=== PATIENT | female | born 1965 | race Caucasian/White ===

== ENCOUNTER 2021-06-25 08:24 | Outpatient (CLI) | payer BC ==
[2021-06-25 14:58] LABS: BASOPHILS % (AUTO) 0.6 %; EOSINOPHILS # (AUTO) 0.1 10^3/uL (0.0-0.7); EOSINOPHILS % (AUTO) 1.9 %; HCT - HEMATOCRIT 41.3 % (37.0-47.0); HGB - HEMOGLOBIN 13.7 g/dL (12.0-16.0); LYMPHOCYTES # (AUTO) 2.4 10^3/uL (1.5-3.5); LYMPHOCYTES % (AUTO) 35.2 %; MEAN CORPUSCULAR HEMOGLOBIN 28.7 pg (27.0-31.0); MEAN CORPUSCULAR HGB CONC 33.2 g/dL (32.0-36.0); MEAN CORPUSCULAR VOLUME 86.4 fL (81.0-99.0); MEAN PLATELET VOLUME 10.7 fL (7.9-10.8); MONOCYTES # (AUTO) 0.5 10^3/uL (0.0-1.0); MONOCYTES % (AUTO) 7.5 %; NEUTROPHILS # (AUTO) 3.6 10^3/uL (1.5-6.6); NEUTROPHILS % (AUTO) 54.4 %; PLT - PLATELET COUNT 229 10^3/uL (130-450); RED BLOOD COUNT 4.78 10^6/uL (4.20-5.40); WHITE BLOOD COUNT 6.7 x10^3/uL (4.8-10.8)
[2021-06-25 15:40] LABS: ALBUMIN 3.9 g/dL (3.2-5.5); ALBUMIN/GLOBULIN RATIO 1.2 (1.0-2.2); ALKALINE PHOSPHATASE 62 IU/L (42-121); ALT ALANINE AMINOTRANSFERASE 21 IU/L (10-60); AST ASPARTATE AMINOTRANSFERASE 16 IU/L (10-42); BILIRUBIN,TOTAL 1.1 mg/dL (0.2-1.0); BUN - BLOOD UREA NITROGEN 11 mg/dL (6-20); CALCIUM 9.2 mg/dL (8.5-10.3); CARBON DIOXIDE - CO2 26 mmol/L (21-32); CHLORIDE 104 mmol/L (101-111); CHOL/HDL RATIO 4.2 (<4.4); CHOLESTEROL 194 mg/dL; CREATININE 0.6 mg/dL (0.4-1.0); GFR - MDRD 104 (>89); GLUCOSE 109 mg/dL (70-100); HDL CHOLESTEROL 46 mg/dL; LDL CHOLESTEROL,CALCULATED 117 mg/dL; LDL/HDL RATIO 2.5 (<4.4); POTASSIUM 3.9 mmol/L (3.5-5.0); SODIUM 136 mmol/L (135-145); TOTAL PROTEIN 7.1 g/dL (6.7-8.2); TRIGLYCERIDES 154 mg/dL; VLDL CHOLESTEROL 31 mg/dL
[2021-06-25 16:01] LABS: THYROID STIMULATING HORMONE 0.71 uIU/mL (0.34-5.60)
== END 2021-06-25 08:25 | disposition home or self-care (01) ==
LOC: LAB.S 08:24
PROVIDERS: ATTEND Family Medicine
DX: Z00.00 Encounter for general adult medical examination without abnormal findings (principal); E06.3 Autoimmune thyroiditis
CPT/HCPCS: 36415; 80053; 80061; 83721; 84443; 85025

== ENCOUNTER 2021-12-30 07:17 | Day surgery (SDC) | payer BC ==
[2021-12-30] MEDS ORDERED: LACTATED RINGERS 1,000 ML IV ONE ×2 (07:39→09:10)
--- NOTE | 2021-12-30 08:34 | ANESTHESIA ---
Pre-Anesthesia VS, & Labs - Diagnosis screening exam - Procedure colonoscopy Vital Signs: Temp Pulse Resp BP Pulse Ox O2 Flow Rate 36.2 C L 90 16 155/95 H 98 12/30/21 07:30 12/30/21 07:30 12/30/21 07:30 12/30/21 07:45 12/30/21 07:30 Height: 5 ft 3 in Weight (kg): 102.6 kg Body Mass Index: 40.0 BMI Classification: Morbidly Obese - NPO >8 hours - Is Patient ?: No Home Medications and Allergies Estradiol 0.05 mg Patch [Climara 0.05 mg] 1 patch [id number] DAILY 12/22/21 Liothyronine [Cytomel] 5 mcg PO DAILY 12/22/21 Progesterone, Micronized [Prometrium] 100 mg PO DAILY 12/22/21 Thyroid,Pork [[place] Thyroid] 60 mg PO DAILY 12/22/21 Allergies/Adverse Reactions: Allergies Allergy/AdvReac Type Severity Reaction Status Date / Time codeine Allergy Hives Verified 12/22/21 12:13 tree nut Allergy Anaphylaxis Verified 12/22/21 12:11 wheat Allergy Hives Verified 12/22/21 12:13 adhesive AdvReac Unknown Verified 12/22/21 12:25 Anes History & Medical History - Anesthetic History Anesthesia Complications: reports: No previous complications - Medical History Cardiovascular: reports: None Pulmonary: reports: Asthma Gastrointestinal: reports: None Urinary: reports: None Neuro: reports: None Musculoskeletal: reports: None Endocrine/Autoimmune: reports: HyPOthyroidism Blood Disorders: reports: None Skin: reports: Eczema Smoking Status: Never smoker Psychosocial: reports: No issues indicated History of Cancer?: No - Surgical History Eyes Ears Nose Throat (EENT): reports: Tonsil/Adenoidectomy Gynecologic: reports: Hysterectomy, Oophrectomy Exam General: Alert, Oriented x3, Cooperative, No acute distress Dental: WNL Mouth Openin Fingerbreadth Neck Mobility: Normal Mallampati classification: III Thyromental Distance: 4-6 cm Mental/Cognitive Status: Alert/Oriented X3, Normal for patient Plan Anesthesia Type: General, Total IV Consent for Procedure(s) Verified and Reviewed: Yes Code Status: Attempt Resuscitation ASA classification: 2-Mild systemic disease Is this case an emergency?: No
[2021-12-30] MEDS ORDERED: PROPOFOL 500 MG/50 ML 500 MG/50 ML VIAL ONE (09:13)
[2021-12-30] MEDS ORDERED: MIDAZOLAM 2 MG/2 ML VIAL ONE (09:14)
[2021-12-30 09:51] VITALS: BP 112/68
--- NOTE | 2021-12-30 09:55 | ANESTHESIA POST OP EVALUATION ---
Anesthesia Post Eval - Post Anesthesia Eval Vitals: Last Vital Signs Temp 36.1 C L 12/30/21 09:45 Pulse 66 12/30/21 09:45 Resp 16 12/30/21 09:45 BP 112/68 12/30/21 09:45 Pulse Ox 95 12/30/21 09:45 O2 Flow Rate CV Function Including HR & BP: Stable Pain Control: Satisfactory Nausea & Vomiting: Negative Mental Status: Baseline Respiratory Status: Airway Patent Hydration Status: Satisfactory Anesthesia Complications: None
== END 2021-12-30 07:18 | disposition home or self-care (01) ==
LOC: SDS 07:17
PROVIDERS: ATTEND Surgery
PROC: 0DBH8ZZ Excision of Cecum, Via Natural or Artificial Opening Endoscopic (ICD-10-PCS; principal; 2021-12-30 08:15)
DX: Z12.11 Encounter for screening for malignant neoplasm of colon (principal); D12.0 Benign neoplasm of cecum; K64.8 Other hemorrhoids; E66.01 Morbid (severe) obesity due to excess calories; Z68.41 Body mass index [BMI] 40.0-44.9, adult; J45.909 Unspecified asthma, uncomplicated
CPT/HCPCS: 45380; J7120

== ENCOUNTER 2022-05-11 07:20 | Outpatient (CLI) | payer BC ==
[2022-05-11 15:00] LABS: BASOPHILS % (AUTO) 0.4 %; EOSINOPHILS # (AUTO) 0.2 10^3/uL (0.0-0.7); EOSINOPHILS % (AUTO) 2.3 %; HCT - HEMATOCRIT 45.1 % (37.0-47.0); HGB - HEMOGLOBIN 14.2 g/dL (12.0-16.0); LYMPHOCYTES % (AUTO) 41.6 %; MEAN CORPUSCULAR HEMOGLOBIN 27.8 pg (27.0-31.0); MEAN CORPUSCULAR HGB CONC 31.5 g/dL (32.0-36.0); MEAN CORPUSCULAR VOLUME 88.4 fL (81.0-99.0); MEAN PLATELET VOLUME 10.9 fL (7.9-10.8); MONOCYTES # (AUTO) 0.4 10^3/uL (0.0-1.0); MONOCYTES % (AUTO) 5.5 %; NEUTROPHILS # (AUTO) 3.6 10^3/uL (1.5-6.6); NEUTROPHILS % (AUTO) 49.8 %; PLT - PLATELET COUNT 247 10^3/uL (130-450); RED CELL DISTRIBUTION WIDTH 13.2 % (12.0-15.0); WHITE BLOOD COUNT 7.3 x10^3/uL (4.8-10.8)
[2022-05-11 15:18] LABS: % IRON SATURATION 22 % (20-50); ALBUMIN 3.9 g/dL (3.2-5.5); ALBUMIN/GLOBULIN RATIO 1.2 (1.0-2.2); ALKALINE PHOSPHATASE 63 IU/L (42-121); ALT ALANINE AMINOTRANSFERASE 16 IU/L (10-60); AST ASPARTATE AMINOTRANSFERASE 13 IU/L (10-42); BUN - BLOOD UREA NITROGEN 12 mg/dL (6-20); CALCIUM 8.9 mg/dL (8.5-10.3); CARBON DIOXIDE - CO2 27 mmol/L (21-32); CHLORIDE 107 mmol/L (101-111); CHOL/HDL RATIO 4.2 (<4.4); CHOLESTEROL 220 mg/dL; CREATININE 0.7 mg/dL (0.4-1.0); CRP HIGH SENSITIVITY 1.1 mg/L; GFR - MDRD 87 (>89); GLUCOSE 101 mg/dL (70-100); HDL CHOLESTEROL 52 mg/dL; IRON 68 ug/dL (28-170); LDL CHOLESTEROL,CALCULATED 125 mg/dL; LDL/HDL RATIO 2.4 (<4.4); SODIUM 139 mmol/L (135-145); TOTAL IRON BINDING CAPACITY 304 ug/dL (250-450); TOTAL PROTEIN 7.1 g/dL (6.7-8.2); TRANSFERRIN 217 mg/dL (192-382); TRIGLYCERIDES 214 mg/dL; VLDL CHOLESTEROL 43 mg/dL
[2022-05-11 15:28] LABS: FREE T3 2.97 pg/mL (2.5-3.9); THYROID STIMULATING HORMONE 2.7 uIU/mL (0.34-5.60)
[2022-05-11 15:29] LABS: FREE T4 (FREE THYROXINE) 0.68 ng/dL (0.58-1.64)
[2022-05-11 15:34] LABS: FERRITIN 179.2 ng/mL (11.0-306.8)
[2022-05-11 20:35] LABS: ESTIMATED AVERAGE GLUCOSE 94 mg/dL (70-100); HEMOGLOBIN A1c% 4.9 % (4.27-6.07)
== END 2022-05-11 07:21 | disposition home or self-care (01) ==
LOC: LAB.S 07:20
PROVIDERS: ATTEND Naturopath
DX: Z00.01 Encounter for general adult medical examination with abnormal findings (principal); L65.9 Nonscarring hair loss, unspecified; N95.1 Menopausal and female climacteric states
CPT/HCPCS: 36415; 80053; 80061; 82172; 82728; 83036; 83540; 83721; 84439; 84443; 84466; 84481; 85025; 86141

== ENCOUNTER 2022-10-18 08:47 | Outpatient (CLI) | payer BC ==
[2022-10-18 15:13] LABS: BASOPHILS % (AUTO) 0.5 %; EOSINOPHILS # (AUTO) 0.2 10^3/uL (0.0-0.7); EOSINOPHILS % (AUTO) 3.1 %; HCT - HEMATOCRIT 41.1 % (37.0-47.0); HGB - HEMOGLOBIN 13.4 g/dL (12.0-16.0); LYMPHOCYTES # (AUTO) 2.3 10^3/uL (1.5-3.5); LYMPHOCYTES % (AUTO) 38.7 %; MEAN CORPUSCULAR HEMOGLOBIN 28.6 pg (27.0-31.0); MEAN CORPUSCULAR HGB CONC 32.6 g/dL (32.0-36.0); MEAN CORPUSCULAR VOLUME 87.6 fL (81.0-99.0); MEAN PLATELET VOLUME 10.3 fL (7.9-10.8); MONOCYTES # (AUTO) 0.4 10^3/uL (0.0-1.0); NEUTROPHILS % (AUTO) 51.5 %; PLT - PLATELET COUNT 213 10^3/uL (130-450); RED BLOOD COUNT 4.69 10^6/uL (4.20-5.40); RED CELL DISTRIBUTION WIDTH 13.2 % (12.0-15.0); WHITE BLOOD COUNT 5.8 x10^3/uL (4.8-10.8)
[2022-10-18 15:38] LABS: % IRON SATURATION 44 % (20-50); ALBUMIN/GLOBULIN RATIO 1.4 (1.0-2.2); ALKALINE PHOSPHATASE 70 IU/L (42-121); ALT ALANINE AMINOTRANSFERASE 11 IU/L (10-60); AST ASPARTATE AMINOTRANSFERASE 10 IU/L (10-42); BUN - BLOOD UREA NITROGEN 13 mg/dL (6-20); CALCIUM 9.3 mg/dL (8.5-10.3); CARBON DIOXIDE - CO2 29 mmol/L (21-32); CHLORIDE 104 mmol/L (101-111); CHOL/HDL RATIO 5.4 (<4.4); CHOLESTEROL 226 mg/dL; CREATININE 0.6 mg/dL (0.6-1.3); CRP HIGH SENSITIVITY 3.06 mg/L; GFR - MDRD 104 (>89); GLUCOSE 93 mg/dL (74-104); HDL CHOLESTEROL 42 mg/dL; IRON 117 ug/dL (50-212); LDL CHOLESTEROL,CALCULATED 114 mg/dL; LDL/HDL RATIO 2.7 (<4.4); POTASSIUM 4.3 mmol/L (3.5-4.5); SODIUM 136 mmol/L (135-145); TOTAL IRON BINDING CAPACITY 263 ug/dL (250-450); TOTAL PROTEIN 6.9 g/dL (6.4-8.9); TRANSFERRIN 188 mg/dL (203-362); TRIGLYCERIDES 350 mg/dL (48-352); VLDL CHOLESTEROL 70 mg/dL
[2022-10-18 15:55] LABS: FERRITIN 204.1 ng/mL (11.0-306.8)
[2022-10-18 18:28] LABS: ESTIMATED AVERAGE GLUCOSE 97 mg/dL (70-100)
== END 2022-10-18 08:48 | disposition home or self-care (01) ==
LOC: LAB.S 08:47
PROVIDERS: ATTEND Naturopath
DX: Z00.01 Encounter for general adult medical examination with abnormal findings (principal); E78.2 Mixed hyperlipidemia
CPT/HCPCS: 36415; 80053; 80061; 82172; 82728; 83036; 83540; 83721; 84466; 85025; 86141

== ENCOUNTER 2023-08-26 02:08 | Emergency (ER) | payer BC ==
[2023-08-26 02:24] VITALS: O2SAT 98
[2023-08-26 02:32] LABS: BASOPHILS % (AUTO) 0.3 %; EOSINOPHILS # (AUTO) 0.2 10^3/uL (0.0-0.7); EOSINOPHILS % (AUTO) 1.6 %; HCT - HEMATOCRIT 41.8 % (37.0-47.0); HGB - HEMOGLOBIN 13.9 g/dL (12.0-16.0); LYMPHOCYTES # (AUTO) 2.7 10^3/uL (1.5-3.5); LYMPHOCYTES % (AUTO) 25.5 %; MEAN CORPUSCULAR HEMOGLOBIN 28.4 pg (27.0-31.0); MEAN CORPUSCULAR HGB CONC 33.3 g/dL (32.0-36.0); MEAN CORPUSCULAR VOLUME 85.5 fL (81.0-99.0); MONOCYTES # (AUTO) 0.6 10^3/uL (0.0-1.0); MONOCYTES % (AUTO) 5.4 %; NEUTROPHILS # (AUTO) 7.1 10^3/uL (1.5-6.6); PLT - PLATELET COUNT 221 10^3/uL (130-450); RED BLOOD COUNT 4.89 10^6/uL (4.20-5.40); RED CELL DISTRIBUTION WIDTH 12.7 % (12.0-15.0); WHITE BLOOD COUNT 10.7 x10^3/uL (4.8-10.8)
[2023-08-26 02:49] LABS: ALBUMIN 4.1 g/dL (3.2-5.5); ALBUMIN/GLOBULIN RATIO 1.6 (1.0-2.2); BILIRUBIN,TOTAL 1.1 mg/dL (0.2-1.0); CALCIUM 9.3 mg/dL (8.5-10.3); CREATININE 0.8 mg/dL (0.6-1.3); POTASSIUM 3.5 mmol/L (3.5-4.5); TOTAL PROTEIN 6.7 g/dL (6.4-8.9)
[2023-08-26] MEDS ORDERED: iohexoL-300 100 ML VIAL ONE (03:42)
[2023-08-26] MEDS: iohexoL-300 100 ML VIAL IVP ONE (04:06)
[2023-08-26] MEDS: SODIUM CHLORIDE 0.9% 1,000 ML IV STA (04:36)
--- NOTE | 2023-08-26 04:52 | ED Physician Documentation ---
PD HPI ABD PAIN - Stated complaint Stated Complaint: ABD PX - Chief complaint Chief Complaint: Abd Pain - History obtained from History obtained from: Patient - Additional information Additional information: Patient is a 58-year-old female who is currently on Mounjaro presenting for evaluation of abdominal pain that started suddenly at 130. She reports it feels all over but worse in the upper abdomen. It is sharp. No associated nausea or vomiting. Normal bowel movement today. She recently increased her dose of Mounjaro Has otherwise been tolerating it well. No fever, chest pain, difficulty breathing. Has had prior hysterectomy. Denies dysuria. Review of Systems Constitutional: denies: Fever Cardiac: denies: Chest pain / pressure Respiratory: denies: Dyspnea GI: reports: Abdominal Pain. 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: Tonsil/Adenoidectomy - Present Medications Home Medications: Ambulatory Orders Medication Instructions Recorded Confirmed Estradiol 0.05 mg Patch [Climara 1 patch [id number] DAILY 12/22/21 12/29/21 0.05 mg] Liothyronine [Cytomel] 5 mcg PO DAILY 12/22/21 12/29/21 Progesterone, Micronized 100 mg PO DAILY 12/22/21 12/29/21 [Prometrium] Thyroid,Pork [[place] Thyroid] 60 mg PO DAILY 12/22/21 12/29/21 - Allergies Allergies/Adverse Reactions: Allergies Allergy/AdvReac Type Severity Reaction Status Date / Time codeine Allergy Hives Verified 08/26/23 02:20 tree nut Allergy Anaphylaxis Verified 08/26/23 02:20 wheat Allergy Hives Verified 08/26/23 02:20 adhesive AdvReac Unknown Verified 08/26/23 02:20 - Social History Does the pt smoke?: No Smoking Status: Never smoker Does the pt drink ETOH?: Yes Does the pt have substance abuse?: No - Immunizations Immunizations are current?: Yes - POLST Patient has POLST: No PD ED PE NORMAL - General General: Alert and oriented X 3, No acute distress, Well developed/nourished - HEENT HEENT: Atraumatic - Neck Neck: Supple, no meningeal sign - Cardiac Cardiac: RRR, Strong equal pulses - Respiratory Respiratory: No respiratory distress, Clear bilaterally - Abdomen Abdomen: Normal bowel sounds, Soft, Non distended, Other (Epigastric and left upper quadrant tenderness,) - Derm Derm: Warm and dry - Neuro Neuro: Normal speech Results - Vitals Vitals: Vital Signs - 24 hr 08/26/23 08/26/23 02:16 05:04 Temperature 36.4 C L Heart Rate 106 H 78 Respiratory 18 18 Rate Blood Pressure 192/115 H 166/88 H O2 Saturation 98 98 Oxygen O2 Source Room air - Labs Labs: Laboratory Tests 08/26/23 08/26/23 02:26 02:26 WBC 10.7 RBC 4.89 Hgb 13.9 Hct 41.8 MCV 85.5 MCH 28.4 MCHC 33.3 RDW 12.7 Plt Count 221 MPV 10.0 Neut # (Auto) 7.1 H Lymph # (Auto) 2.7 [place] # (Auto) 0.6 Eos # (Auto) 0.2 Baso # (Auto) 0.0 Absolute Nucleated RBC 0.00 Nucleated RBC % 0.0 Sodium 138 Potassium 3.5 Chloride 104 Carbon Dioxide 26 Anion Gap 8.0 BUN 12 Creatinine 0.8 Estimated GFR (MDRD) 74 L Glucose 105 H Calcium 9.3 Total Bilirubin 1.1 H AST 29 ALT 25 Alkaline Phosphatase 78 Total Protein 6.7 Albumin 4.1 Globulin 2.6 Albumin/Globulin Ratio 1.6 Lipase 13 PD Medical Decision Making - ED course Complexity details: reviewed results, re-evaluated patient, d/w patient ED course: Patient presenting for evaluation of abdominal pain that woke her up from her sleep around 130. She is on Mounjaro and they recently increased her dose. CBC, chemistry were obtained and reviewed and without significant findings. Patient did have some tenderness primarily in the epigastric and left upper quadrant on repeated exam so CT scan was obtained and reviewed and without significant findings in this area. The CT report does comment about a distended gallbladder but on repeat evaluation she does not have tenderness in the right upper quadrant and states that this feels different than gallbladder attacks that she has had before. Similarly the CT scan also comments on Borderline distention of the appendix but no other findings to suggest appendicitis. On repeated exam she does not have any tenderness on the right lower quadrant. She is feeling better here. Would like to go home. She is counseled on strict return precautions should her pain recur or migrate elsewhere such as to the right side of her abdomen. Departure - Departure Disposition: 01 Home, Self Care Clinical Impression: Upper abdominal pain Condition: Stable Instructions: ED Abdominal Pain Female Non-Specific Abdominal Pain Comments: Your lab testing today is reassuring and it is also a good sign that your pain has significantly improved. The CAT scan of your abdomen does show a distended gallbladder but you do not have much tenderness over the gallbladder. At this time as your symptoms are improving feel it is reasonable to allow you to go home without further testing. However if your symptoms recur or return especially in the right Side of your abdomen then please return to the emergency department. Forms: PCP List Discharge Date/Time: 08/26/23 05:07
[2023-08-26 05:13] VITALS: BP 166/88
--- NOTE | 2023-08-26 12:10 | CT Report ---
PROCEDURE: Abdomen/Pelvis W INDICATIONS: upper abd pain CONTRAST: OMNI 300, 100mls TECHNIQUE: After the administration of intravenous contrast, a CT scan of the abdomen and pelvis was performed. Images were recorded and evaluated at appropriate window settings. Reformats: coronal and sagittal. F or radiation dose reduction, the following was used: automated exposure control, adjustment of mA and /or kV according to patient size. COMPARISON: None. FINDINGS: Image quality: Diagnostic. Lower chest: Unremarkable. Liver: No solid mass. Liver is enlarged measuring 17.9 cm. Gallbladder: Unremarkable. Biliary tree: No intrahepatic or extrahepatic dilation, accounting for age. Spleen: No splenomegaly. Pancreas: No pancreatic ductal dilation. Adrenals: No adrenal nodule. Kidneys and ureters: No hydronephrosis. No renal cystic lesion which requires follow up. No solid mas s. Stomach, bowel and peritoneum: No gastric or small bowel dilation. No abnormal wall thickening. No pa thologic free fluid. Extensive the upper limits of normal measuring 6 mm without surrounding inflammatory change. No appen dicolith. Lymph nodes: No central or retroperitoneal adenopathy. Vessels: No infrarenal aortic aneurysm. Patent portal vein. PELVIS Reproductive organs: 2.7 cm low-attenuation focus is present within the right ovary. Bladder: No abnormal wall thickening, accounting for underdistention. Pelvic lymph nodes: No pelvic adenopathy by size criteria. Bones: No aggressive osseous abnormality. Other: No significant ventral or inguinal hernia. IMPRESSION: Borderline prominence of the appendix without associated inflammatory change. This is likely incident al. However, very early developing appendicitis cannot be definitively excluded recommend correlation to clinical symptoms within this region. 2.5 cm right adnexal cyst. The above findings are concordant with preliminary report. Reviewed by: Morenita Dallas MD on 08/26/2023 12:08 PM PDT Approved by: Morenita Dallas MD on 08/26/2023 12:08 PM PDT Station ID: [id number]
== END 2023-08-26 05:07 | disposition home or self-care (01) ==
LOC: ED 02:08
DX: R10.10 Upper abdominal pain, unspecified (principal)
CPT/HCPCS: 36415; 74177; 80053; 83690; 85025; 99284; Q9967

== ENCOUNTER 2023-11-11 01:40 | Emergency (ER) | payer BC ==
[2023-11-11 02:14] LABS: BASOPHILS % (AUTO) 0.3 %; EOSINOPHILS # (AUTO) 0.2 10^3/uL (0.0-0.7); EOSINOPHILS % (AUTO) 1.3 %; HCT - HEMATOCRIT 43.3 % (37.0-47.0); HGB - HEMOGLOBIN 14.2 g/dL (12.0-16.0); LYMPHOCYTES # (AUTO) 1.8 10^3/uL (1.5-3.5); LYMPHOCYTES % (AUTO) 15.8 %; MEAN CORPUSCULAR HEMOGLOBIN 28.4 pg (27.0-31.0); MEAN CORPUSCULAR HGB CONC 32.8 g/dL (32.0-36.0); MEAN CORPUSCULAR VOLUME 86.6 fL (81.0-99.0); MEAN PLATELET VOLUME 10.4 fL (7.9-10.8); MONOCYTES # (AUTO) 0.7 10^3/uL (0.0-1.0); MONOCYTES % (AUTO) 5.8 %; NEUTROPHILS # (AUTO) 8.8 10^3/uL (1.5-6.6); NEUTROPHILS % (AUTO) 76.5 %; PLT - PLATELET COUNT 227 10^3/uL (130-450); WHITE BLOOD COUNT 11.5 x10^3/uL (4.8-10.8)
[2023-11-11 02:15] LABS: BILIRUBIN,URINE NEGATIVE (NEGATIVE); GLUCOSE, URINE (UA) NEGATIVE (NEGATIVE); KETONES,URINE (UA) NEGATIVE (NEGATIVE); LEUKOCYTE ESTERASE, URINE NEGATIVE (NEGATIVE); NITRITE,URINE NEGATIVE (NEGATIVE); OCCULT BLOOD,URINE TRACE-INTA (NEGATIVE); PROTEIN,URINE NEGATIVE (NEGATIVE); UROBILINOGEN,URINE 0.2 (NORMAL) E.U./dL (NORMAL)
[2023-11-11 02:21] LABS: CLARITY,URINE CLEAR (CLEAR)
[2023-11-11 02:31] LABS: ALBUMIN 4.3 g/dL (3.2-5.5); ALBUMIN/GLOBULIN RATIO 1.3 (1.0-2.2); BILIRUBIN,TOTAL 1.6 mg/dL (0.2-1.0); CALCIUM 9.3 mg/dL (8.5-10.3); CREATININE 0.6 mg/dL (0.6-1.3); POTASSIUM 3.7 mmol/L (3.5-4.5); TOTAL PROTEIN 7.5 g/dL (6.4-8.9)
[2023-11-11] MEDS: KETOROLAC 30 MG/ML VIAL IVP STA (02:39)
--- NOTE | 2023-11-11 06:55 | ED Physician Documentation ---
PD HPI ABD PAIN - Stated complaint Stated Complaint: VOMITING/ABD PX - Chief complaint Chief Complaint: Abd Pain - History obtained from History obtained from: Patient, Family - History of Present Illness Timing - onset: How many days ago (33) Timing - duration: Days Timing - details: Gradual onset, Waxing and waning, Still present in ED Quality: Cramping, Sharp, Pain Location: RUQ Radiation: Lower back Improved by: Laying still Worsened by: Eating, Moving, Breathing, Position, Palpation Associated symptoms: Nausea, Vomiting Similar symptoms before: Diagnosis (cholelithiasis) Recently seen: Emergency Dept - Additional information Additional information: 58-year-old old Saige Cardona has developed a problem with right upper quadrant abdominal pain and nausea and vomiting. She has been seen in our emergency department here a CT scan was done demonstrating a problem with her gallbladder and she has had a follow-up ultrasound done at [facility]. This demonstrated stones. She has not been able to contact a surgeon to do her surgery. Review of Systems Constitutional: denies: Fever Eyes: denies: Decreased vision Ears: denies: Ear pain Nose: denies: Congestion Throat: denies: Sore throat Cardiac: denies: Chest pain / pressure, Palpitations Respiratory: denies: Dyspnea, Cough GI: reports: Abdominal Pain, Nausea, Vomiting : denies: Dysuria, Frequency Skin: denies: Rash Musculoskeletal: reports: Back pain. 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 HEENT: Tonsil/Adenoidectomy - Present Medications Home Medications: Ambulatory Orders Medication Instructions Recorded Confirmed Estradiol 0.05 mg Patch [Climara 1 patch [id number] DAILY 12/22/21 11/11/23 0.05 mg] Liothyronine [Cytomel] 5 mcg PO DAILY 12/22/21 11/11/23 Progesterone, Micronized 100 mg PO DAILY 12/22/21 11/11/23 [Prometrium] Thyroid,Pork [[place] Thyroid] 60 mg PO DAILY 12/22/21 11/11/23 - Allergies Allergies/Adverse Reactions: Allergies Allergy/AdvReac Type Severity Reaction Status Date / Time codeine Allergy Hives Verified 11/11/23 01:57 tree nut Allergy Anaphylaxis Verified 11/11/23 01:57 wheat Allergy Hives Verified 11/11/23 01:57 adhesive AdvReac Unknown Verified 11/11/23 01:57 - Social History Does the pt smoke?: No Smoking Status: Never smoker Does the pt drink ETOH?: Yes Does the pt have substance abuse?: No - Immunizations Immunizations are current?: Yes - POLST Patient has POLST: No PD ED PE NORMAL - Vitals Vital signs reviewed: Yes (hypertensive ) - General General: Alert and oriented X 3, Well developed/nourished, Other (58-year-old female who is moaning in pain and appears anxious.) - HEENT HEENT: Atraumatic, PERRL, EOMI - Neck Neck: Supple, no meningeal sign, No bony TTP - Cardiac Cardiac: RRR, No murmur - Respiratory Respiratory: No respiratory distress, Clear bilaterally - Abdomen Abdomen: Normal bowel sounds, Soft, Other (There is marked right upper quadrant abdominal pain resting respirations with palpation of the right upper quadrant) - Back Back: No CVA TTP, No spinal TTP - Derm Derm: Normal color, Warm and dry, No rash - Extremities Extremities: No deformity, No edema - Neuro Neuro: Alert and oriented X 3, 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, No motor deficit, No sensory deficit, Normal speech Eye Opening: Spontaneous Motor: Obeys Commands Verbal: Oriented GCS Score: 15 - Psych Psych: Normal mood, Normal affect Results - Vitals Vitals: Vital Signs - 24 hr 11/11/23 11/11/23 01:45 06:45 Temperature 36.8 C Heart Rate 86 79 Respiratory 24 16 Rate Blood Pressure 150/90 H 143/84 H O2 Saturation 98 99 Oxygen O2 Source Room air - Labs Labs: Laboratory Tests 11/11/23 11/11/23 11/11/23 02:05 02:09 02:09 WBC 11.5 H RBC 5.00 Hgb 14.2 Hct 43.3 MCV 86.6 MCH 28.4 MCHC 32.8 RDW 13.0 Plt Count 227 MPV 10.4 Neut # (Auto) 8.8 H Lymph # (Auto) 1.8 [place] # (Auto) 0.7 Eos # (Auto) 0.2 Baso # (Auto) 0.0 Absolute Nucleated RBC 0.00 Nucleated RBC % 0.0 Sodium 138 Potassium 3.7 Chloride 104 Carbon Dioxide 29 Anion Gap 5.0 L BUN 12 Creatinine 0.6 Estimated GFR (MDRD) 103 Glucose 105 H Calcium 9.3 Total Bilirubin 1.6 H AST 193 H ALT 302 H Alkaline Phosphatase 146 H Total Protein 7.5 Albumin 4.3 Globulin 3.2 Albumin/Globulin Ratio 1.3 Lipase 45 Urine Color YELLOW Urine Clarity CLEAR Urine pH 6.0 Ur Specific [place] 1.025 Urine Protein NEGATIVE Urine Glucose (UA) NEGATIVE Urine Ketones NEGATIVE Urine Occult Blood TRACE-INTA Urine Nitrite NEGATIVE Urine Bilirubin NEGATIVE Urine Urobilinogen 0.2 (NORMAL) Ur Leukocyte Esterase NEGATIVE Ur Microscopic Review NOT INDICATED Urine Culture Comments NOT INDICATED Procedures - Bedside sono Bedside sono by EMP: With use of POCUS the gallbladder is imaged it is enlarged sonographically tender there are shadowing stones the gallbladder wall thickness is 7 mm and there is some pericholecystic fluid that is slight PD Medical Decision Making - ED course Complexity details: reviewed old records, reviewed results, re-evaluated patient, considered differential, d/w patient, d/w family Reviewed Lab Results: We reviewed a complete blood count showing an elevated white blood count cell count of 11.5 and normal hemoglobin hematocrit and platelets chemistries showed normal electrolytes normal BUN and creatinine bilirubin elevated at 1.6 AST 193 ALT 302 alkaline phosphatase 146. Urinalysis shows a clear yellow urine normal specific gravity 1.025 I interpret these laboratory test to indicate the patient has potential for common duct stone and for Cholecystitis. ED course: Saige Cardona is a 58-year-old female presenting with acute right upper quadrant abdominal pain that has been persistent and recurrent over the past month. She has now had pain for 3 days. She has had some periods of time where her pain has resolved. Today she has a biochemical profile concerning for the possibility of common duct stone. With POCUS I was able to demonstrate what appears to be cholecystitis. This morning we will obtain formal ultrasound. I have discussed the case with Dr. Villarreal whom the patient has seen previously. He is currently out of town and defers to the surgeon on-call. At shift change her care is turned over to Dr. Ruiz with ultrasound pending. Departure - Departure Forms: PCP List
[2023-11-11] MEDS: PIPERACILLIN/TAZOBACTAM 3.375 GM in SODIUM CHLORIDE 0.9% MINIBAG 100 ML IV STA (07:14)
--- NOTE | 2023-11-11 08:21 | ED Physician Documentation ---
ED Addendum - Addendum Addendum: 11/11/23 08:[address] Veras at 7 AM shift change. Briefly this is a 58-year-old woman with known gallstones who presented with severe pain, much better at this juncture. Labs showing mild leukocytosis and a mild obstructive pattern on her CMP. Ultrasound showing thick gallbladder wall without pericholecystic fluid. She does have stones but no common ductal dilatation. At this time I did ask our surgeon, Dr. Zambrano to consult and discuss timing of cholecystectomy and he said he would be by in about an hour. 11/11/23 11:31 She has been seen by the surgeon who reportedly does not feel that she needs an urgent surgery. She is agreeable to go home and was given close return precautions as well as a prescription for hydrocodone and Zofran. We discussed dietary restrictions pending cholecystectomy. Disposition: Discharged home Condition: Stable Diagnosis: 1. Biliary colic
[2023-11-11] MEDS: D5.45NS W/20 MEQ KCL 1,000 ML IV STA (08:27)
--- NOTE | 2023-11-11 09:55 | Ultrasound Report ---
PROCEDURE: Abdomen Limited INDICATIONS: RUQ pain TECHNIQUE: Real-time focused scanning was performed of the abdomen, with image documentation. COMPARISONS: None. FINDINGS: Liver: Mildly increased echogenicity of the liver suggests possible mild fatty change. Gallbladder: There is gallbladder sludge and there appear to be tiny gallstones. However, there is no obvious shadowing from gallstones. There is diffuse gallbladder wall thickening, measuring 5 mm. No sonographic Clauido sign. Biliary ducts: Intrahepatic bile ducts are non-dilated. Extrahepatic bile duct caliber measures 3 m m. Normal is 6-7 mm or less in diameter, or 10 mm or less post-cholecystectomy. Pancreas: Visualized portions of the pancreas are sonographically normal. IVC: Intrahepatic inferior vena cava is patent. Miscellaneous: No free abdominal fluid. IMPRESSION: Findings may potentially correlate with the clinical diagnosis of acute cholecystitis. There is defin ite diffuse wall thickening and there are questionably stones present. There is no Claudio's sign, how ever. Above discussed with Fortunato Ruiz MD at the time of dictation. Reviewed by: Fermín Frazier MD on 11/11/2023 9:54 AM PDT Approved by: Fermín Frazier MD on 11/11/2023 9:54 AM PDT Station ID: [id number]
--- NOTE | 2023-11-11 11:30 | CONSULTATION NOTE ---
Referring Provider Consult Date: 11/11/23 Chief Complaint - Chief Complaint Chief Complaint: abdominal pain History of Present Illness - History Obtained From Records Reviewed: yes History obtained from: pt Exam Limitations: none - History of Present Illness HPI Comment/Other: 2 days upper abdominal pain. currently much improved. pain nearly resolved. similar episode of pain 1 month ago. 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 HEENT: reports: Tonsil/Adenoidectomy - POLST Patient has POLST: No Meds/Allgy - Home Medications Home Medications: Ambulatory Orders Medication Instructions Recorded Confirmed Estradiol 0.05 mg Patch [Climara 1 patch [id number] DAILY 12/22/21 11/11/23 0.05 mg] Liothyronine [Cytomel] 5 mcg PO DAILY 12/22/21 11/11/23 Progesterone, Micronized 100 mg PO DAILY 12/22/21 11/11/23 [Prometrium] Thyroid,Pork [[place] Thyroid] 60 mg PO DAILY 12/22/21 11/11/23 - Allergies Allergies/Adverse Reactions: Allergies Allergy/AdvReac Type Severity Reaction Status Date / Time codeine Allergy Hives Verified 11/11/23 01:57 tree nut Allergy Anaphylaxis Verified 11/11/23 01:57 wheat Allergy Hives Verified 11/11/23 01:57 adhesive AdvReac Unknown Verified 11/11/23 01:57 Review of Systems - Other Findings Other Findings: 10 pt ros as above otherwise unremarkable Exam - Vital Signs Vital Signs: Vital Signs x48h Pulse Resp BP Pulse Ox 11/11/23 10:00 82 14 132/74 H 99 11/11/23 08:00 89 16 134/73 H 100 11/11/23 06:45 79 16 143/84 H 99 - Physical Exam General Appearance: positive: No acute distress, Alert Eyes Bilateral: positive: PERRL, EOMI, No scleral icterus ENT: positive: No signs of dehydration Neck: positive: No JVD Respiratory: positive: No respiratory distress Abdomen: positive: No distention Neurologic/Psychiatric: positive: Oriented x3 Conclusion/Plan - Problem List (1) Upper abdominal pain Conclusion/Plan: she most likely is passing or has passed a gallstone at this point. mildly elevated lfts and gallbladder sludge and small stones. she is much improved. ok to go home on a light liquid diet and then slowly a dvance to a low fat diet. follow up in surgery office and prn no need for abxs or prescription pain pills. - Lab Results Fish Bones: 11/11/23 02:09 11/11/23 02:09
[2023-11-11 12:29] VITALS: BP 154/87; O2SAT 98
== END 2023-11-11 12:22 | disposition home or self-care (01) ==
LOC: ED 01:40
DX: K80.50 Calculus of bile duct without cholangitis or cholecystitis without obstruction (principal); E03.9 Hypothyroidism, unspecified; Z79.899 Other long term (current) drug therapy
CPT/HCPCS: 36415; 80053; 81001; 81003; 83690; 85025; 87086; 96365; 96375; 99284

== ENCOUNTER 2023-11-15 07:59 | Day surgery (SDC) | payer BC ==
[~2023-11-15 07:59] MED LIST: BUPIVACAINE 0.5% PF 10 ML VIAL ONE; iohexoL-240 10 ML VIAL IVP ONE
[2023-11-15] MEDS ORDERED: ceFAZolin 2 GM VIAL ONE (08:03)
[2023-11-15] MEDS: LACTATED RINGERS 1,000 ML IV ONE (08:11)
--- NOTE | 2023-11-15 09:16 | ANESTHESIA ---
Pre-Anesthesia VS, & Labs - Diagnosis symptomatic cholelithiasis - Procedure lap [email or web address] Vital Signs: Temp Pulse Resp BP Pulse Ox O2 Flow Rate 36.4 C L 79 20 151/85 H 99 11/15/23 08:12 11/15/23 08:12 11/15/23 08:12 11/15/23 08:12 11/15/23 08:12 Height: 5 ft 3 in Weight (kg): 98.6 kg Body Mass Index: 38.5 BMI Classification: Obese - NPO >8 hours - Is Patient ?: No Home Medications and Allergies Estradiol 0.05 mg Patch [Climara 0.05 mg] 1 patch [id number] DAILY 12/22/21 Liothyronine [Cytomel] 5 mcg PO DAILY 12/22/21 Progesterone, Micronized [Prometrium] 100 mg PO DAILY 12/22/21 Thyroid,Pork [[place] Thyroid] 60 mg PO DAILY 12/22/21 Allergies/Adverse Reactions: Allergies Allergy/AdvReac Type Severity Reaction Status Date / Time codeine Allergy Hives Verified 11/15/23 08:37 tree nut Allergy Anaphylaxis Verified 11/15/23 08:37 wheat Allergy Hives Verified 11/15/23 08:37 adhesive AdvReac Unknown Verified 11/15/23 08:37 Anes History & Medical History - Anesthetic History Anesthesia Complications: reports: Post-Operative Nausea/Vomiting (does not want scop patch) - Medical History Cardiovascular: reports: None Pulmonary: reports: Asthma (not symptomatic) Gastrointestinal: reports: Cholelithiasis Urinary: reports: None Neuro: reports: None Musculoskeletal: reports: None Endocrine/Autoimmune: reports: HyPOthyroidism Blood Disorders: reports: None Skin: reports: Eczema Smoking Status: Never smoker Psychosocial: reports: No issues indicated History of Cancer?: No - Surgical History General: reports: Colonoscopy Eyes Ears Nose Throat (EENT): reports: Tonsil/Adenoidectomy Gynecologic: reports: Hysterectomy, Oophrectomy Exam General: Alert, Oriented x3, Cooperative, No acute distress Dental: WNL Mouth Openin Fingerbreadth Neck Mobility: Reduced Mallampati classification: II Thyromental Distance: 4-6 cm Mental/Cognitive Status: Alert/Oriented X3, Normal for patient Plan Anesthesia Type: General Consent for Procedure(s) Verified and Reviewed: Yes Code Status: Attempt Resuscitation ASA classification: 2-Mild systemic disease Is this case an emergency?: No
[2023-11-15] MEDS ORDERED: ATROPINE ABBOJECT 1 MG/10 ML SYRINGE IVP PRN (09:18)
[2023-11-15] MEDS ORDERED: MORPHINE 2 MG/ML CARPUJECT IVP PRN (09:18)
[2023-11-15] MEDS ORDERED: fentaNYL 100 MCG/2 ML VIAL IVP PRN (09:18)
[2023-11-15] MEDS ORDERED: NALOXONE 0.4 MG/ML VIAL IVP PRN (09:18)
[2023-11-15] MEDS ORDERED: ONDANSETRON 4 MG/2 ML VIAL IVP ONE (09:20)
[2023-11-15] MEDS ORDERED: PROPOFOL 500 MG/50 ML 500 MG/50 ML VIAL ONE ×3 (09:31→11:00)
[2023-11-15] MEDS ORDERED: ONDANSETRON 4 MG/2 ML VIAL ONE ×3 (09:31→15:22)
[2023-11-15] MEDS ORDERED: MIDAZOLAM 2 MG/2 ML VIAL ONE (09:32)
[2023-11-15] MEDS: ONDANSETRON 4 MG/2 ML VIAL IVP PRN ×2 (09:32→15:39)
[2023-11-15] MEDS ORDERED: fentaNYL 100 MCG/2 ML VIAL ONE ×2 (09:32→10:50)
[2023-11-15] MEDS ORDERED: LIDOCAINE-PF 2% 10 ML AMP SUBQ ONE (09:32)
[2023-11-15] MEDS ORDERED: PROPOFOL 200 MG/20 ML VIAL IVP ONE (09:34)
[2023-11-15] MEDS ORDERED: ROCURONIUM 50 MG/5 ML VIAL ONE (09:36)
[2023-11-15] MEDS ORDERED: GLYCOPYRROLATE 1 MG/5 ML VIAL ONE (09:36)
[2023-11-15] MEDS ORDERED: KETAMINE 200 MG/20 ML VIAL ONE (09:42)
[2023-11-15] MEDS ORDERED: DEXMEDETOMIDINE 200 MCG/2 ML VIAL ONE (09:44)
[2023-11-15] MEDS ORDERED: LACTATED RINGERS 1,000 ML IV SCH (10:00)
[2023-11-15] MEDS ORDERED: ePHEDrine 50 MG/ML VIAL IVP ONE (10:31)
[2023-11-15] MEDS ORDERED: DEXAMETHASONE 4 MG/ML VIAL ONE (10:38)
[2023-11-15] MEDS ORDERED: SUGAMMADEX 200 MG/2 ML VIAL IVP ONE (11:21)
[2023-11-15] MEDS: BUPIVACAINE 0.5% PF 30 ML VIAL SUBQ ONE (11:27)
[2023-11-15] MEDS: LACTATED RINGERS 900 ML IV ONE (11:55)
[2023-11-15] MEDS ORDERED: KETOROLAC 15 MG/ML VIAL ONE (12:13)
[2023-11-15] MEDS: ACETAMINOPHEN 1,000 MG/100 ML 1,000 MG/100 ML BAG IV ONE (12:15)
[2023-11-15] MEDS: KETOROLAC 15 MG/ML VIAL IVP STA (12:17)
[2023-11-15] MEDS ORDERED: ACETAMINOPHEN 1,000 MG/100 ML 1,000 MG/100 ML BAG IV ONE (12:17)
--- NOTE | 2023-11-15 12:18 | OPERATIVE REPORT ---
Operative Report - General Procedure Date: 11/15/23 Planned Procedure: Laparoscopic cholecystectomy, possible open cholecystectomy, possible intraoperative cholangiogram, possible common bile duct exploration Pre-Op Diagnosis: Symptomatic cholelithiasis Procedure Performed: Laparoscopic cholecystectomy Post Op Diagnosis: Same - Procedure Note Primary Surgeon: Tal Gore MD Anesthesia Provider: Earnest Inman CRNA Anesthesia Technique: General ET tube, Local (30 mL of half percent Marcaine) IV Fluids (mL): 1,000 Estimated Blood Loss (mL): 5 Drain/Tube Type: Other (None.) Indications: As above. Findings: Distended gallbladder with small stones. Complications: None. - Other Other Information/Narrative: After verbal and written informed consent was obtained detailing the operation, the alternatives to the operation including no operation, risks of infection, bleeding requiring transfusion with its risks, nerve injury, and and after I met with the patient confirming the surgery, the patient was brought to the operative suite and placed supine on the operating table. Great care was taken to avoid pressure points to prevent pressure necrosis or nerve injury. Monitoring devices were applied along with TEDs and pneumatic compressive stockings (to prevent DVT). The patient received preoperative antibiotics for surgical prophylaxis. Earnest Inman CRNA sedated and anesthetized the patient for the entire procedure. The patient was prepped and draped in usual sterile manner. A "time in" then confirmed that the patient was identified with 3 identifiers (name, date, and medical record number), the history and physical was in the chart, the signed consent confirming the procedure was in the chart, the patient was in the correct position, the aforementioned prophylactic measures were in place were given, we had the correct personnel and equipment to complete the procedure and that anesthesia, and the surgical team was given an opportunity to express any concerns. With the agreement of everyone in the room, we proceeded with the operation. The initial incision was at the umbilicus and dissection to the linea alba was completed using blunt dissection. The linea alba was grasped with a Cristobal and incised. In a similar manner the peritoneum was grasped and incised using Metzenbaum scissors. In this location, a 12 mm blunt tipped, balloon tipped port was placed and the balloon was inflated to keep the port in position. The abdominal cavity was insufflated with carbon dioxide to a steady-state pressure of 15 mmHg. 3 additional 5 mm ports were placed in standard locations for laparoscopic cholecystectomy (subxiphoid and 2 right subcostal) under direct vision of the 30 degree laparoscope and without incident. The patient was then placed in reverse Trendelenburg position and was rotated slightly to their left. The gallbladder fundus was grasped with an atraumatic grasper. Multiple adhesions had to be taken down by blunt and sharp dissection along with electrocautery. Eventually, I identified the infundibulum and this was then grasped and retracted superiorly and laterally. Dissection was then begun at the angle of Calot. The cystic duct and (slightly medially and posteriorly), cystic artery were clearly identified. The critical view was obtained and a photograph taken. 2 clips proximally and one clip distally were used to control both the cystic duct and cystic artery. The clips were carefully placed to avoid occluding the juncture with the common bile duct. Both the cystic duct and then the cystic artery were then transected with laparoscopic michele. The gallbladder was then removed from its fossa in a retrograde manner using electrocautery. Prior to complete removal of the gallbladder from the liver bed there was a ductal structure that was coming off of the liver bed into the gallbladder itself. This needed to be transected to allow for removal of the gallbladder and this was done with 2 clips proximally and distally. This did not appear to be part of the cystic duct but it could have been a large duct of Luschka. With the 30 degree 5 mm scope in the subxiphoid position, the gallbladder was placed in an Endo Catch bag to be extracted through the 12 mm port site. I irrigated the right upper quadrant with liter of warm sterile sa line and the area was aspirated dry. I inspected the gallbladder fossa and there was no bleeding or bile leak. Clips on the cystic duct and cystic artery appeared to be secure. I briefly visually explored the abdomen. There was no other evidence of overt pathology. I injected the port sites at the peritoneal, fascial, and skin levels under direct vision with 0.5% Marcaine. All ports and the Endo Catch containing the gallbladder were removed. Following gallbladder removal, the remaining carbon dioxide was expelled from the abdomen. The fascia the umbilicus was approximated using a [id number] 0 Vicryl suture. The skin at each port site was approximated using a subcuticular 4-0 Monocryl. Dermabond was then placed over the wounds. At this point a "timeout" was performed that confirmed that all counts were correct, the procedure that was performed, the blood loss, the IV fluids administered, the patient's condition and any concerns of the operating team had. Having tolerated the procedure well, the patient was extubated and taken to recovery room in good and stable condition. The plan is for outpatient discharge when the patient is adequately recovered. CPT 95109 This document was created in part using voice recognition technology. Because of the inherent limitations of the system, occasional same sounding word substitutions and grammatical errors do occur and persist despite proofreading. Please read this document for context.
[2023-11-15] MEDS ORDERED: HYDROmorphone 1 MG/ML CARPUJECT ONE (12:22)
[2023-11-15] MEDS: HYDROmorphone 0.5 MG/0.5 ML SYRINGE IVP PRN ×2 (12:25→14:25)
[2023-11-15] MEDS ORDERED: HYDROcod/ACETAM 5/325 MG TABLET ONE (13:21)
[2023-11-15] MEDS: HYDROcod/ACETAM 5/325 MG TABLET PO PRN (13:23)
[2023-11-15] MEDS ORDERED: HYDROmorphone 0.5 MG/0.5 ML SYRINGE ONE (14:24)
--- NOTE | 2023-11-15 15:22 | ANESTHESIA POST OP EVALUATION ---
Anesthesia Post Eval - Post Anesthesia Eval Vitals: Last Vital Signs Temp 35.9 C L 11/15/23 14:30 Pulse 61 11/15/23 15:00 Resp 16 11/15/23 15:00 BP 118/66 11/15/23 15:00 Pulse Ox 93 11/15/23 15:00 O2 Flow Rate CV Function Including HR & BP: Stable Pain Control: Satisfactory Nausea & Vomiting: Negative Mental Status: Baseline Respiratory Status: Airway Patent Hydration Status: Satisfactory Anesthesia Complications: None
[2023-11-15] MEDS ORDERED: LORazepam 2 MG/ML VIAL ONE (15:54)
[2023-11-15] MEDS: LORazepam 2 MG/ML VIAL IVP ONE (15:55)
[2023-11-15 18:13] VITALS: BP 137/77; O2SAT 95
== END 2023-11-15 18:21 | disposition home or self-care (01) ==
LOC: SDS 07:59 → MS2 16:08 → SDS 18:21
PROVIDERS: ATTEND Surgery
PROC: 0FT44ZZ Resection of Gallbladder, Percutaneous Endoscopic Approach (ICD-10-PCS; principal; 2023-11-15 09:15)
DX: K80.10 Calculus of gallbladder with chronic cholecystitis without obstruction (principal); E66.9 Obesity, unspecified; Z68.38 Body mass index [BMI] 38.0-38.9, adult
CPT/HCPCS: 47562; A9270; J0131; J1170; J2060; J3490; J7120; Q9966